=== PATIENT | female | born 1955 | race Caucasian/White ===

== ENCOUNTER → 2019-12-26 11:05 | Outpatient (CLI) | payer OTHER, SELFPAY ==
--- NOTE | ~2019-12-26 | XR_ITS ---
EXAMINATION: XR shoulder LT min 2V DATE: 12/26/2019 11:58 INDICATION: Left shoulder pain. TECHNIQUE: 4 views of left shoulder were obtained. COMPARISON: None. FINDINGS: Bone alignment is normal. No fracture. There is moderate osteoarthritis of glenohumeral brendan nt and acromioclavicular joint. A calcified left lung nodule and calcified left hilar lymph nodes are consistent with old granulomatous disease. IMPRESSION: 1. Polyarticular osteoarthritis. Reviewed, dictated and finalized at location A. 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
== END ==
PROVIDERS: PCP Physician Assistant; Visit Provider Physician Assistant
DX: M79.602 Pain in left arm (principal); M15.9 Polyosteoarthritis, unspecified
CPT/HCPCS: 73030

== ENCOUNTER → 2019-12-26 11:10 | Outpatient (CLI) | payer OTHER, SELFPAY ==
--- NOTE | ~2019-12-26 | MM_ITS ---
EXAMINATION: MM screening hemanth BI w vamsi HISTORY: Screening mammogram TECHNIQUE: Craniocaudal and mediolateral oblique 3-D tomosynthesis images were obtained and synthetic 2-D images were generated. CAD analysis was submitted and interpreted. COMPARISON: Comparison to multiple prior studies sequentially, with oldest reviewed study dated 10/01. BREAST PARENCHYMAL COMPOSITION: There are scattered areas of fibroglandular density. FINDINGS: There is no evidence of suspicious mass, calcification, or architectural distortion to sugg est malignancy in either breast. There has been no suspicious interval change. IMPRESSION: 1. No mammographic evidence of malignancy. 2. Recommend routine screening mammography in one year. BI-RADS Category 1: Negative Reviewed, dictated and finalized at location A. 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
== END ==
PROVIDERS: PCP Physician Assistant; Visit Provider Nurse Practitioner
DX: Z12.31 Encounter for screening mammogram for malignant neoplasm of breast (principal)
CPT/HCPCS: 77063; 77067

== ENCOUNTER → 2021-02-16 14:39 | Outpatient (CLI) | payer MEDICARE, SELFPAY ==
--- NOTE | ~2021-02-16 | XR_ITS ---
XR knee LT 3V DATE: 02/16/2021 14:51 INDICATION: Left knee effusion TECHNIQUE: [place], AP and lateral standing views COMPARISON: None FINDINGS: There is some deformity at the neck and metaphysis of the proximal tibia, possibly due to o steochondroma, possibly due to old fracture. There is mild loss of medial compartment joint space height. There is mild suprapatellar knee joint effusion. No fracture, dislocation, periosteal reaction or bone destruction, radiopaque intra-articular loose b kevin or chondrocalcinosis is evident. IMPRESSION: Mild knee joint effusion Mild loss of medial compartment joint space height, likely due to degenerative change Proximal fibular deformity, possibly due to osteochondroma or old fracture deformity Reviewed, dictated and finalized at location A. IMPRESSION: Mild knee joint effusion Mild loss of medial compartment joint space height, likely due to degenerative change Proximal fibular deformity, possibly due to osteochondroma or old fracture defo rmity
== END ==
PROVIDERS: PCP Internal Medicine; Visit Provider Physician Assistant
DX: M25.462 Effusion, left knee (principal)
CPT/HCPCS: 73562

== ENCOUNTER 2021-03-14 13:16 | Emergency (ER) | payer MEDICARE, SELFPAY ==
[2021-03-14 13:24] VITALS: BP 165/73; PULSE 72; RESP 16; TEMP 36.3; O2SAT 99
--- NOTE | 2021-03-14 13:24 | ED.UPPEXIN ---
HPI - Extremity Injury (Upper) General Chief Complaint: Skin/Abscess/Foreign Body Stated Complaint: Splinter in Nail bed Time Seen by Provider: 03/14/21 13:24 Source: patient and RN notes reviewed Mode of arrival: ambulatory Limitations: no limitations History of Present Illness HPI narrative: 66-year-old female presents to the [facility] with complaints of a splinter under fingernail of the middle right hand. States that it has been there since last night and tried to remove it herself. Unknown last tDap Related Data Allergies Allergy/AdvReac Type Severity Reaction Status Date / Time No Known Allergies Allergy Verified 03/14/21 13:22 Review of Systems Review of Systems: All systems reviewed & are unremarkable except as noted in HPI and below Constitutional: Constitutional: Reports no additional constitutional complaints Eyes: Eyes: Reports no additional eye complaints ENT: Reports system reviewed and no additional complaints, except as documented Cardiovascular: Cardiovascular: Reports no additional cardiovascular complaints Respiratory: Respiratory: Reports no additional respiratory complaints Musculoskeletal: Musculoskeletal: Reports no additional musculoskeletal complaints Integumentary/Breasts: Skin/Breast: Reports as per HPI Comments: Foreign body under nail right middle finger Neurologic: Reports system reviewed and no additional complaints, except as documented Psychiatric: Psychiatric: Reports no additional psychiatric complaints PMFSH Surgical History Surgical History History of lateral meniscus repair of left knee (~10/18/17) Family History Family History Mother Hypertension Cerebrovascular accident Family history of type 2 diabetes mellitus Patient's mother is Father Family history of type 2 diabetes mellitus Patient's father is Other Family history of kidney disease Social History Social History Smoking status: Former smoker Tobacco type: cigarettes Second hand tobacco smoke exposure: No Smoking end date: 10/31/74 Alcohol intake: current Substance use: never Comments At the time of my signature, I reviewed and agree with the nursing past medical, surgical, social, and family history. There is no relevant family history pertinent to the patient complaint. Exam Const: General: healthy appearing, no acute distress and alert Nutritional Appearance: well nourished Orientation/consciousness: patient oriented x3 Limitations: no limitations HENMT: Head: normal to inspection Face and sinus: normal facial exam Mouth: Yes lip normal Eyes: Pupils: Equal, round and reactive pupils present Neck: Neck: normal visual inspection Chest: Chest palpation & inspection: normal inspection of the chest Resp: Effort & Inspection: normal respiratory effort and no use of accessory muscles Auscultation: clear to auscultation bilaterally, no crackles, no rales, no rhonchi and no wheezes Cardio: Rate: regular rate Rhythm: regular rhythm : General: Yes no CVA tenderness Back/Spine/Pelvis: Back: no CVA tenderness Skin: General skin exam: normal color Wounds: wounds noted (Splinter under fingernail middle finger right hand) Neuro: General: patient oriented x3, moves all extremities and no meningeal signs Speech: normal speech Gait exam (Neuro): Normal gait present Extrem: General: normal to inspection Psych: Appearance: grossly normal and well kempt Mental Status: mental status grossly normal Affect: normal affect Attitude: cooperative Thought content: Yes Normal thought content present Course Vital Signs Vital signs: Vital Signs Temperature 97.3 F L 03/14/21 13:24 Pulse Rate 72 03/14/21 13:24 Respiratory Rate 16 03/14/21 13:24 Blood Pressure 165/73 H 03/14/21 13:24 Puls
[2021-03-14 13:32] VITALS: BP 165/73; PULSE 72; RESP 16; TEMP 36.3; O2SAT 99
[2021-03-14] MEDS: TETANUS,DIPHTHERIA,AC PERTUSSIS ADULT (0.5 ML) BOOSTRIX IM (14:18)
== END 2021-03-14 14:29 | disposition home or self-care (01) ==
PROVIDERS: Emergency Provider Nurse Practitioner; PCP Internal Medicine
DX: S61.242A Puncture wound with foreign body of right middle finger without damage to nail, initial encounter (principal); W45.8XXA Other foreign body or object entering through skin, initial encounter; Z23 Encounter for immunization; Z87.891 Personal history of nicotine dependence
CPT/HCPCS: 29130; 90471; 90715; 99213; G0463

== ENCOUNTER → 2021-04-20 11:15 | Outpatient (CLI) | payer MEDICARE, SELFPAY ==
--- NOTE | ~2021-04-20 | DEXA_ITS ---
Bone Density Report Name: April Andersen Age: 66 Sex: Female Ethnicity: White Date of : 1955 Indication: postmenopausal; screening for osteoporosis; Referring Provider: Vicki, Isabella Study: Bone densitometry was performed. Exam Date: April 20, 2021 Accession number: [id number] Bone Density: Region BMD T-score Z-score Classification AP Spine (L1, L2) 1.031 0.5 2.2 Normal Femoral Neck (Left) 0.842 -0.1 1.5 Normal Total Hip (Left) 0.897 -0.4 0.9 Normal Femoral Neck (Right) 0.767 -0.7 0.8 Normal Total Hip (Right) 0.845 -0.8 0.5 Normal Total Hip Mean 0.871 -0.6 0.7 Normal World Health Organization criteria for BMD impression classify patients as: Normal (T-score at or above -1.0), Osteopenia (T-score between -1.0 and -2.5), or Osteoporosis (T-score at or below -2.5). 10-year Fracture Risk: FRAX not reported because: All T-scores for Spine Total, Hip Total, Femoral Neck at or above -1.0 Previous Exams: Region Exam Age BMD T-score BMD Change BMD Change Date g/cm2 vs Baseline vs Previous AP Spine(L1, L2) 04/20/2021 66 1.031 0.5 0.013 0.089* 11/24/2017 62 0.943 -0.3 -0.076* -0.041* 01/07/2014 58 0.984 0.0 -0.035* 0.028* 11/05/2009 54 0.956 -0.2 -0.062* -0.062* 01/04/2005 49 1.019 0.4 Total Hip(Left) 04/20/2021 66 0.897 -0.4 -0.063* -0.037* 11/24/2017 62 0.934 -0.1 -0.025 0.043* 01/07/2014 58 0.892 -0.4 -0.068* 0.018 11/05/2009 54 0.874 -0.6 -0.086* -0.086* 01/04/2005 49 0.960 0.1 Total Hip(Right) 04/20/2021 66 0.845 -0.8 -0.100* -0.038* 11/24/2017 62 0.882 -0.5 -0.062* 0.039* 01/07/2014 58 0.843 -0.8 -0.101* 0.004 11/05/2009 54 0.839 -0.8 -0.106* -0.106* 01/04/2005 49 0.944 0.0 *Denotes significance at 95% confidence level, LSC for AP Spine = 0.022 g/cm2, LSC for Total Hip = 0.027 g/cm2 Clinical Information Provided by Patient: Has 3 or more alcoholic drinks per day Patient maximum height was 65 Menopause Age: 49 No regular weight bearing exercise Does not regularly consume dairy products Drinks caffeinated beverages Onset of menses at age 14 Number of children 2 Impression: The patient has normal bone mass. The patient has risk factors, including: exce
--- NOTE | ~2021-04-20 | MM_ITS ---
EXAMINATION: MM screening hemanth BI w vamsi HISTORY: Screening mammogram TECHNIQUE: Craniocaudal and mediolateral oblique 3-D tomosynthesis images were obtained and synthetic 2-D images were generated. CAD analysis was submitted and interpreted. COMPARISON: 12/26/2019 bilateral digital screening mammogram 12/02/2017 diagnostic left digital mammogram and limited left breast ultrasound 11/24/2017 bilateral digital screening mammogram 11/09/2016 bilateral diagnostic digital mammography and limited right breast ultrasound examination BREAST PARENCHYMAL COMPOSITION: There are scattered areas of fibroglandular density. FINDINGS: Bilateral axillary tail probable lymph nodes are noted. New 3 mm opacity with nipple-like projection is noted in the very posterior lower inner left breast o n CC projection. Diagnostic left mammogram and left breast ultrasound examination are recommended. No suspicious mass, architectural distortion or significant new or developing density of either [address] is noted otherwise. IMPRESSION: 1. New 3 mm opacity very posterior lower inner left breast on CC projection 2. Diagnostic left mammogram and left breast ultrasound examination are recommended. BI-RADS Category 0: Incomplete: Needs additional imaging evaluation. Reviewed, dictated and finalized at location A. IMPRESSION: 1. New 3 mm opacity very posterior lower inner left breast on CC projection 2. Diagnostic left mammogram and left breast ultrasound examination are recomme nded. BI-RADS Category 0: Incomplete: Needs additional imaging evaluation.
== END ==
PROVIDERS: PCP Internal Medicine; Visit Provider Nurse Practitioner
DX: Z12.31 Encounter for screening mammogram for malignant neoplasm of breast (principal); Z78.0 Asymptomatic menopausal state; R92.8 Other abnormal and inconclusive findings on diagnostic imaging of breast
CPT/HCPCS: 77063; 77067; 77080

== ENCOUNTER 2021-05-11 07:06 | Outpatient (CLI) | payer MEDICARE, SELFPAY ==
--- NOTE | 2021-05-28 19:19 | WPDHOMESLEEP ---
Sleep Study - Home Unattended Date of Study: 05/11/21 Ordering Provider: Geovanni Zambrano PA-C Interpreting Provider: Tierra Hopper MD Home Sleep Study Type: Apnea Link Air Height: 1.65 m Weight: 97.522 kg Body Mass Index: 35.7 Neck Circumference (inches): 12.5 [place]: 0 Reason for Sleep Study Hypersomnia Sleep History April Andersen is a 66 year old female with poor quality sleep. She notes that her sleep problems began in her 40s, with episodes of waking during the night and having difficulty returning to sleep. She has used [id number] sleep medications a few times with poor response. These do not always help. She has used a FitBit in the last year to track her sleep. This has shown that she is not getting quality sleep. It takes her a few hours in the morning to become fully alert. She does not awaken from sleep feeling short of breath. She occasionally awakens at night with heartburn. Her told her 2 years ago for the 1st time that she was snoring. She rarely has trouble sleeping with a cold. She does not wake up gasping for breath at night and does not have breathing problems at night observed by others. She does not sweat excessively at night, does not notice her heart pounding or beating irregularly at night, she does not fall asleep during the day, involuntarily or while driving. She does become very tired on long car drives. She does not have loss of muscle tone with strong emotion, does not have daytime difficulties due to excessive sleepiness and does not feel paralyzed on waking or falling asleep. She does have vivid dreamlike scenes upon awakening or falling asleep. She never feels afraid to go to sleep. She rarely has nightmares. She rarely remembers her dreams. She occasionally has racing thoughts. She rarely feels sad or depressed. She occasionally has anxiety and muscular tension. She does not notice parts of her body jerking and she does not kick at night. She denies having crawling and aching feelings in her legs. She rarely has leg pain at night. She does not have morning jaw pain. She occasionally grinds her teeth at night, although this has improved since she has retired. She frequently is bothered by pain during the day, rarely awakened by pain at night. She does not wake up feeling stiff the morning, does not wake with sore achy muscles but she occasionally awakens with pain in her hip. She has fatigue. Normal bedtime is 10:00 p.m., taking 10 minutes to fall asleep most often but occasionally 1 to 1-1/2 hours. She wakes 1-2 times at night to urinate. It takes a few minutes for her to return to sleep. She wakes in the morning between 6:00 and 7:00 a.m.. She is getting 6-1/2 hours of sleep at night according to her Fitbit. She is not able to fall asleep to take a nap. Habits: Never smoked tobacco. Caffeine: a half pot of coffee in the morning. Alcohol 3 beers or 2 glasses of wine regularly. No recreational drugs. [facility] Surgical History Surgical History History of lateral meniscus repair of left knee (~10/18/17) Family History Family History Mother Hypertension Cerebrovascular accident Family history of type 2 diabetes mellitus Patient's mother is Father Family history of type 2 diabetes mellitus Patient's father is Other Family history of kidney disease Social History Social History Smoking status: Former smoker Tobacco type: cigarettes Second hand tobacco smoke exposure: No Smoking end date: 10/31/74 Alcohol intake: current Substance use: never Medications Home Medications Medication Instructions Recorded Confirmed Type celecoxib 200 mg capsule 200 mg PO DAILY #30 cap 02/16/21 03/14/21 Rx omeprazole 20 mg capsule,delayed 20 mg PO DAILY #30 cap 02/16/21
[2021-05-28 21:17] VITALS: BMI 35.7
== END 2021-05-12 11:51 | disposition home or self-care (01) ==
LOC: ANHCSM 07:09
PROVIDERS: PCP Internal Medicine; Visit Provider Physician Assistant
DX: G47.33 Obstructive sleep apnea (adult) (pediatric) (principal)
CPT/HCPCS: 95806

== ENCOUNTER 2021-06-23 08:35 | Outpatient (CLI) | payer MEDICARE, SELFPAY ==
--- NOTE | 2021-07-20 00:15 | WPDSLEEPSTUD ---
Sleep Study Date of Study: 06/23/21 Ordering Provider: Geovanni Zambrano PA-C Interpreting Physician: Tierra Hopper MD Sleep Study Type: CPAP Titration Height: 1.65 m Weight: 98.066 kg Body Mass Index: 35.9 Neck Circumference (inches): 12.5 [place]: 3 Reason for Sleep Study * home sleep test using ApneaLink May 11 showing severe obstructive sleep apnea, AHI 30.2, desaturation to 66%, snoring and prolonged hypoxemia.; patient presents for CPAP titration Sleep History April Andersen is a 66 year old female with poor quality sleep. She notes that her sleep problems began in her 40s, with episodes of waking during the night and having difficulty returning to sleep. She has used [id number] sleep medications a few times with poor response. These do not always help. She has used a FitBit in the last year to track her sleep. This has shown that she is not getting quality sleep. It takes her a few hours in the morning to become fully alert. She does not awaken from sleep feeling short of breath. She occasionally awakens at night with heartburn. Her told her 2 years ago for the 1st time that she was snoring. She rarely has trouble sleeping with a cold. She does not wake up gasping for breath at night and does not have breathing problems at night observed by others. She does not sweat excessively at night, does not notice her heart pounding or beating irregularly at night, she does not fall asleep during the day, involuntarily or while driving. She does become very tired on long car drives. She does not have loss of muscle tone with strong emotion, does not have daytime difficulties due to excessive sleepiness and does not feel paralyzed on waking or falling asleep. She does have vivid dreamlike scenes upon awakening or falling asleep. She never feels afraid to go to sleep. She rarely has nightmares. She rarely remembers her dreams. She occasionally has racing thoughts. She rarely feels sad or depressed. She occasionally has anxiety and muscular tension. She does not notice parts of her body jerking and she does not kick at night. She denies having crawling and aching feelings in her legs. She rarely has leg pain at night. She does not have morning jaw pain. She occasionally grinds her teeth at night, although this has improved since she has retired. She frequently is bothered by pain during the day, rarely awakened by pain at night. She does not wake up feeling stiff the morning, does not wake with sore achy muscles but she occasionally awakens with pain in her hip. She has fatigue. Normal bedtime is 10:00 p.m., taking 10 minutes to fall asleep most often but occasionally 1 to 1-1/2 hours. She wakes 1-2 times at night to urinate. It takes a few minutes for her to return to sleep. She wakes in the morning between 6:00 and 7:00 a.m.. She is getting 6-1/2 hours of sleep at night according to her Fitbit. She is not able to fall asleep to take a nap. Habits: Never smoked tobacco. Caffeine: a half pot of coffee in the morning. Alcohol 3 beers or 2 glasses of wine regularly. No recreational drugs. [facility], [facility] Past Medical History Medical History (Updated 07/20/21 @ 00:18 by Tierra Hopper MD) Hyperlipidemia Obstructive sleep apnea (~04/2021) Surgical History Surgical History History of lateral meniscus repair of left knee (~10/18/17) Family History Family History Mother Hypertension Cerebrovascular accident Family history of type 2 diabetes mellitus Patient's mother is Father Family history of type 2 diabetes mellitus Patient's father is Other Family history of kidney disease Social History Social History Smoking status: Former smoker Tobacco type: cigarettes Second hand tobacco smoke exposure: No Smoking end date
[2021-07-20 11:38] VITALS: BMI 35.9
== END 2021-06-24 07:13 | disposition home or self-care (01) ==
LOC: ANHCSM 08:35
PROVIDERS: PCP Internal Medicine; Visit Provider Physician Assistant
DX: G47.33 Obstructive sleep apnea (adult) (pediatric) (principal)
CPT/HCPCS: 95811

== ENCOUNTER → 2021-06-23 09:53 | Outpatient (CLI) | payer MEDICARE, SELFPAY ==
--- NOTE | ~2021-06-23 | MM_ITS ---
EXAMINATION: MM diagnostic hemanth LT w vamsi HISTORY: Left breast mass on screening mammogram TECHNIQUE: Additional 3-D tomosynthesis images of the left breast were performed and synthetic 2-D im ages were generated. CAD analysis was submitted and interpreted. COMPARISON: 04/20/2021, 12/26/2019 FINDINGS: The left breast mass described on screening mammogram corresponds to a small skin lesion. N o suspicious mass, calcification, or architectural distortion are identified in the breast parenchyma . IMPRESSION: 1. Skin lesion corresponding to the mammographic finding in question. No mammographic evidence of mal ignancy. 2. Recommend routine screening mammography in one year. BI-RADS Category 1: Negative Reviewed, dictated and finalized at location A. IMPRESSION: 1. Skin lesion corresponding to the mammographic finding in question. No mammog raphic evidence of malignancy. 2. Recommend routine screening mammography in one year. BI-RADS Category 1: Negative
== END ==
PROVIDERS: Visit Provider Obstetrics & Gynecology Gynecology
DX: R92.8 Other abnormal and inconclusive findings on diagnostic imaging of breast (principal)
CPT/HCPCS: 77061; 77065; G0279

== ENCOUNTER → 2022-05-07 07:32 | Outpatient (CLI) | payer MEDICARE, SELFPAY ==
--- NOTE | ~2022-05-07 | XR_ITS ---
EXAMINATION: XR hip RT min 3V w AP pelvis INDICATION: Right hip pain TECHNIQUE: AP view the pelvis and two views of the right hip are obtained. COMPARISON: None available FINDINGS: Bone alignment is normal. There is no fracture. There is mild osteoarthritis of the hips. P hleboliths are noted in the pelvis. IMPRESSION: 1. Mild osteoarthritis of the hips. Reviewed, dictated and finalized at location B.
--- NOTE | ~2022-05-07 | XR_ITS ---
EXAMINATION: XR lumbar spine 6V w bending DATE: 05/07/2022 08:14 INDICATION: Chronic low back pain TECHNIQUE: Anteroposterior, lateral in neutral, flexion and extension, and bilateral oblique views of the lumbar spine, and cone-down lateral view of the lumbosacral junction were obtained. COMPARISON: 01/30/2016 FINDINGS: Bone alignment is normal. There is no laxity with flexion or extension. The vertebral body heights are normal. There is mild loss of intervertebral disc space height at L4-5. There is severe f acet osteoarthritis of the lower lumbar spine. No fracture is identified. The bowel gas pattern is no rmal. There are phleboliths of the pelvis. IMPRESSION: 1. Unchanged severe facet arthritis of the lower lumbar spine without acute findings or significant i nterval change. Reviewed, dictated and finalized at location B. IMPRESSION: 1. Unchanged severe facet arthritis of the lower lumbar spine without acute fin dings or significant interval change.
== END ==
PROVIDERS: PCP Internal Medicine; Visit Provider Physician Assistant
DX: M54.30 Sciatica, unspecified side (principal); M25.551 Pain in right hip; M16.0 Bilateral primary osteoarthritis of hip; M85.88 Other specified disorders of bone density and structure, other site
CPT/HCPCS: 72114; 73502

== ENCOUNTER → 2022-06-24 08:41 | Outpatient (CLI) | payer MEDICARE, SELFPAY ==
--- NOTE | ~2022-06-24 | MR_ITS ---
EXAMINATION: MR lumbar spine wo con DATE: 06/24/2022 09:21 INDICATION: Lumbar radiculopathy. TECHNIQUE: Magnetic resonance imaging (MRI) of the lumbar spine was performed without intravenous con trast. Sequences included sagittal T2-weighted FSE, sagittal T2-weighted FS FSE, sagittal T1-weighted FSE, and axial T2-weighted FSE. COMPARISON: Lumbar spine radiographs 05/07/2022 FINDINGS: There is 3 degrees levocurvature of lumbar spine. Vertebral body heights are normal. There is mildly decreased disc height at L3-L4. The distal spinal cord signal intensity is normal. The conu s medullaris is at L1. Partially visualized is a 4.3 cm cyst in right adnexa. The following disc leve ls are specifically discussed: L1-L2: The disc does not extend beyond the endplate margin. There is mild bilateral facet joint osteo arthritis. There is no neural foraminal stenosis. There is no central canal stenosis. L2-L3: There is a left foraminal protrusion with annular fissure. There is moderate bilateral facet j oint osteoarthritis. There is mild left neural foraminal stenosis. There is no central canal stenosis . L3-L4: The disc is bulging and has an annular fissure. There is severe bilateral facet joint osteoart hritis. There is mild bilateral neural foraminal stenosis. There is mild central canal stenosis. L4-L5: The disc is bulging and has an annular fissure. There is severe bilateral facet joint osteoart hritis. There is mild bilateral neural foraminal stenosis. There is mild central canal stenosis. L5-S1: The disc does not extend beyond the endplate margin. There is severe bilateral facet joint ost eoarthritis. There is mild bilateral neural foraminal stenosis. There is no central canal stenosis. IMPRESSION: 1. Mild lumbar spondylosis. 2. Partially visualized 4.3 cm cyst in right adnexa, probably benign. Pelvis ultrasound is recommende d. Reviewed, dictated and finalized at location A. IMPRESSION: 1. Mild lumbar spondylosis. 2. Partially visualized 4.3 cm cyst in right adnexa, probably benign. Pelvis ul trasound is recommended.
== END ==
PROVIDERS: PCP Physician Assistant; Visit Provider Physical Medicine & Rehabilitation
DX: M54.16 Radiculopathy, lumbar region (principal); M43.16 Spondylolisthesis, lumbar region; N83.291 Other ovarian cyst, right side
CPT/HCPCS: 72148

== ENCOUNTER 2022-08-15 10:09 | Emergency (ER) | payer MEDICARE, SELFPAY ==
[2022-08-15 10:18] VITALS: BP 150/90; PULSE 85; RESP 16; TEMP 36.2; O2SAT 98
--- NOTE | 2022-08-15 10:32 | ED.FEMALEGU ---
HPI - Female Genitourinary General Chief complaint: Urogenital-Female Stated complaint: UTI Time Seen by Provider: 08/15/22 10:48 Source: patient and RN notes reviewed Mode of arrival: ambulatory Limitations: no limitations History of Present Illness HPI Narrative: 67-year-old female presents with concern for urinary burning, frequency, hesitation, not emptying her bladder fully for 3 days. She denies any new back pain. Denies abdominal pain, vomiting, fever, body aches, chills, sweats. MD elicited complaint: UTI Related Data Home Medications Medication Instructions Recorded Confirmed tizanidine 2 mg tablet 2 mg PO HS 08/15/22 08/15/22 Allergies Allergy/AdvReac Type Severity Reaction Status Date / Time No Known Allergies Allergy Verified 08/15/22 10:20 Review of Systems Review of Systems: CONSTITUTIONAL: Denies malaise, chills, sweats, or fever. CARDIOVASCULAR: Denies chest pain, palpitations, or edema. RESPIRATORY: Denies cough or dyspnea. GASTROINTESTINAL: Denies abdominal pain, nausea, vomiting, diarrhea GENITOURINARY: Reports dysuria, frequency, hesitation. Denies urgency, suprapubic pressure. Denies flank pain or hematuria. SKIN: Denies rash or itching. MUSCULOSKELETAL: Denies back pain or myalgia. All systems reviewed & are unremarkable except as noted in HPI and below PMFSH Past Medical History Medical History Hyperlipidemia Obstructive sleep apnea (~04/2021) Surgical History Surgical History History of lateral meniscus repair of left knee (~10/18/17) Family History Family History Mother Hypertension Cerebrovascular accident Family history of type 2 diabetes mellitus Patient's mother is Father Family history of type 2 diabetes mellitus Patient's father is Other Family history of kidney disease Social History Social History Smoking status: Former smoker Tobacco type: cigarettes Second hand tobacco smoke exposure: No Smoking end date: 10/31/74 Alcohol intake: current Substance use: never Comments At time of signature, agree with nursing past medical, surgical, social and family history. There is no relevant family history pertinent to the presenting complaint Exam Narrative: GENERAL: Well-appearing, well-nourished, and in no acute distress. HEAD: Normocephalic. EYES: PERRLA, conjunctivae clear. NECK: Supple. No lymphadenopathy CHEST: Clear to auscultation. No respiratory distress. HEART: Regular rate and rhythm. ABDOMEN: Soft, nontender upon palpation, nondistended, normal active bowel sounds, no palpable or pulsatile masses, no guarding. No CVA tenderness SKIN: Warm, dry, no rash. NEURO: Alert and oriented x3. PSYCH: Normal mood and affect Course Course Emergency Course: Patient is aware of diagnosis, understands and agrees to treatment plan. Anticipatory guidance given. Patient agrees to follow-up as directed and is aware of reasons to seek care at the emergency department. Portions of this record may have been created with voice recognition software Level of Care: Express Care Visit Vital Signs Vital signs: Vital Signs Temperature 97.1 F L 08/15/22 10:18 Pulse Rate 85 08/15/22 10:18 Respiratory Rate 16 08/15/22 10:18 Blood Pressure 150/90 H 08/15/22 10:18 Pulse Oximetry 98 08/15/22 10:18 Oxygen Delivery Room Air 08/15/22 10:18 Temperature 97.1 F L 08/15/22 10:18 Pulse Rate 85 08/15/22 10:18 Respiratory Rate 16 08/15/22 10:18 Blood Pressure 150/90 H 08/15/22 10:18 Pulse Oximetry 98 08/15/22 10:18 Oxygen Delivery Room Air 08/15/22 10:18 Reviewed. MDM - Female Genitourinary MDM Narrative Medical decision making narrative: Exam findings a
== END 2022-08-15 11:00 | disposition home or self-care (01) ==
PROVIDERS: Emergency Provider Nurse Practitioner; PCP Obstetrics & Gynecology Gynecology
DX: N39.0 Urinary tract infection, site not specified (principal); Z87.891 Personal history of nicotine dependence; E78.5 Hyperlipidemia, unspecified; G47.33 Obstructive sleep apnea (adult) (pediatric)
CPT/HCPCS: 81003; 87077; 87086; 87186; 99213; G0463

== ENCOUNTER → 2022-08-31 13:39 | Outpatient (CLI) | payer MEDICARE, SELFPAY ==
--- NOTE | ~2022-08-31 | US_ITS ---
EXAMINATION: US transvaginal DATE: 08/31/2022 14:01 INDICATION: Unspecified ovarian cyst, right side. TECHNIQUE: Multiple transvaginal sonographic images of the pelvis were obtained. COMPARISON: Lumbar spine MRI 06/24/2022 FINDINGS: The uterus measures 6.2 x 2.6 x 2.8 cm. There is no free fluid in the pelvis. The endometrial complex measures 4 mm in thickness. The right ovary 4.1 x 4.2 x 4.6 cm. There is a 3.7 cm cyst with peripher al low level echoes in right ovary. The left ovary is not visualized. IMPRESSION: 1. 3.7 cm hemorrhagic cyst in right ovary. Given the patient's age, consider surgical evaluation. Reviewed, dictated and finalized at location A. IMPRESSION: 1. 3.7 cm hemorrhagic cyst in right ovary. Given the patient's age, consider gramajo rgical evaluation.
== END ==
PROVIDERS: PCP Internal Medicine; Visit Provider Obstetrics & Gynecology Gynecology
DX: N83.201 Unspecified ovarian cyst, right side (principal)
CPT/HCPCS: 76830

== ENCOUNTER → 2022-10-28 11:07 | Outpatient (CLI) | payer MEDICARE, SELFPAY ==
--- NOTE | ~2022-10-28 | US_ITS ---
EXAMINATION: US transvaginal DATE: 10/28/2022 12:01 INDICATION: Right ovarian cyst TECHNIQUE: Multiple endovaginal sonographic images of the pelvis were obtained. COMPARISON: 08/31/2022 FINDINGS: The uterus measures 6.2 x 2.7 x 3.1 cm. The endometrial complex measures 5 mm. The right ov boubacar measures 4.6 x 4.2 x 4.5 cm. There is a 4.2 x 3.7 x 4.0 cm right ovarian cyst with mobile interna l debris. The left ovary measures 1.5 x 1.3 x 1.3 cm. There is normal vascular flow in the ovaries. T here is no free fluid in the pelvis. IMPRESSION: 1. 4.2 cm hemorrhagic cyst of the right ovary with minimal increase in size. Reviewed, dictated and finalized at location L. [employer]
== END ==
PROVIDERS: PCP Internal Medicine; Visit Provider Obstetrics & Gynecology Gynecology
DX: N83.01 Follicular cyst of right ovary (principal)
CPT/HCPCS: 76830

== ENCOUNTER 2024-03-23 13:46 | Outpatient (CLI) | payer MEDICARE, SELFPAY ==
--- NOTE | ~2024-03-23 | US_ITS ---
EXAMINATION: US transvaginal DATE: 03/23/2024 14:10 INDICATION: Ovarian cyst TECHNIQUE: Multiple transabdominal and endovaginal sonographic images of the pelvis were obtained. COMPARISON: None. FINDINGS: The uterus measures 3.2 x 4.2 x 3.3 cm. The endometrial complex measures <2 mm exclusive of a small amount of fluid in the endometrial canal of the fundus. There are a few subcentimeter anechoic naboth lv cysts at the cervix. The right ovary measures 4.1 x 3.4 x 4.4 cm. No significant change in a coup le anechoic cysts versus single anechoic cyst with single thin internal septation. Due to cystitis or components of the cyst measures 3.7 x 3.5 x 2.9 cm and 1.4 x 1.2 x 1.0 cm. The left ovary measures 1 .7 x 1.4 x 1.3 cm. And basilar flow identified at both ovaries on color Doppler. There is no free flu id in the pelvis. IMPRESSION: 1. No interval change in either a pair of abutting simple cysts versus single cyst with thin internal septation. No solid nodular soft tissue component to elevate concern for neoplasm. 2. Normal endometrial complex measuring <2 mm exclusive of a small amount of fluid in the endometrial canal at the fundus. Reviewed, dictated and finalized at location A. IMPRESSION: 1. No interval change in either a pair of abutting simple cysts versus single c yst with thin internal septation. No solid nodular soft tissue component to allie vate concern for neoplasm. 2. Normal endometrial complex measuring <2 mm exclusive of a small amount of fl uid in the endometrial canal at the fundus.
== END 2024-03-23 13:47 ==
LOC: MICIMG 13:48
PROVIDERS: PCP Physician Assistant; Visit Provider Nurse Practitioner
DX: N83.201 Unspecified ovarian cyst, right side (principal); Z12.31 Encounter for screening mammogram for malignant neoplasm of breast
CPT/HCPCS: 76830

== ENCOUNTER 2024-07-26 13:38 | Outpatient (CLI) | payer MEDICARE, SELFPAY ==
--- NOTE | ~2024-07-26 | MM_ITS ---
EXAMINATION: MM screening hemanth BI w vamsi HISTORY: Screening TECHNIQUE: Craniocaudal and mediolateral oblique 3-D tomosynthesis images were obtained and synthetic 2-D images were generated. CAD analysis was submitted and interpreted. COMPARISON: Comparison to multiple prior studies sequentially, with oldest reviewed study dated 11/24. BREAST PARENCHYMAL COMPOSITION: Not dense: There are scattered areas of fibroglandular density. FINDINGS: There is no evidence of suspicious mass, calcification, or architectural distortion to sugg est malignancy in either breast. There has been no suspicious interval change. IMPRESSION: 1. No mammographic evidence of malignancy. 2. Recommend routine screening mammography in one year. BI-RADS Category 1: Negative Reviewed, dictated and finalized at location B.
== END 2024-07-26 13:39 | disposition home or self-care (01) ==
LOC: MICIMG 13:40
PROVIDERS: PCP Nurse Practitioner; Visit Provider Nurse Practitioner
DX: Z12.31 Encounter for screening mammogram for malignant neoplasm of breast (principal)
CPT/HCPCS: 77063; 77067